=== PATIENT | female | born 1935 | race African-American/Black ===

== ENCOUNTER 2018-01-13 10:43 | Emergency (ER) | payer SELFPAY ==
[~2018-01-13] VITALS: Ht 162.6 cm; Wt 65.2 kg
[2018-01-13 10:50] VITALS: BP 164/62
== END 2018-01-13 12:50 | disposition home or self-care (01) ==
LOC: ER 10:43
DX: H11.31 Conjunctival hemorrhage, right eye (principal); I10 Essential (primary) hypertension
CPT/HCPCS: 99282

== ENCOUNTER 2022-11-22 17:31 | Emergency (ER) | payer OTHER ==
[~2022-11-22] VITALS: Ht 157.5 cm; Wt 48.0 kg
[2022-11-22 17:33] VITALS: O2SAT 97
[2022-11-22 18:44] LABS: HEMATOCRIT. 26.2 % (36.0-48.0); HEMOGLOBIN. 7.9 g/dL (12.0-16.0); MEAN CORPUSCULAR HEMOGLOBIN 20.3 pg (28.0-32.0); MEAN CORPUSCULAR VOLUME 67.1 fL (81.0-99.0); MEAN PLATELET VOLUME 9.6 fl (7.4-10.4); PLATELET 373 x1000/uL (130-400); RED BLOOD CELL COUNT 3.91 mill/uL (4.2-5.4); RED CELL DISTRIBUTION WIDTH 21.7 % (11.6-14.6)
[2022-11-22 18:54] LABS: CHLORIDE 105 mEq/L (98-107)
[2022-11-22 18:55] LABS: INR 1.1; PROTHROMBIN TIME 11.6 sec (9.6-11.0)
[2022-11-22] MEDS ORDERED: IOHEXOL-350 100 ML BOTTLE ONE (18:58)
[2022-11-22 19:01] LABS: CLARITY URINE CLEAR (CLEAR); COLOR URINE YELLOW (YELLOW); KETONES URINE NEGATIVE (NEGATIVE); LEUKOCYTE ESTERASE URINE NEGATIVE (NEGATIVE); NITRITE URINE NEGATIVE (NEGATIVE); OCCULT BLOOD URINE NEGATIVE (NEGATIVE); PROTEIN URINE TRACE (NEGATIVE); SPECIFIC GRAVITY URINE 1.065 (1.005-1.030); UROBILINOGEN URINE 0.2 E.U./dL (0.2-1.0)
[2022-11-22 19:05] LABS: ETHANOL BLOOD < 10 mg/dL (-10)
[2022-11-22 19:20] LABS: PLATELET ESTIMATE NORMAL
[2022-11-22 19:23] LABS: *AMPHETAMINES SCREEN URINE NEGATIVE (NEGATIVE); *BARBITURATES SCREEN URINE NEGATIVE (NEGATIVE); *BENZODIAZEPINES SCREEN URINE NEGATIVE (NEGATIVE); *COCAINE SCREEN URINE NEGATIVE (NEGATIVE); CANNABINOID URINE SCREEN NEGATIVE (NEGATIVE); METHADONE URINE SCREEN NEGATIVE (NEGATIVE); OPIATES URINE SCREEN NEGATIVE (NEGATIVE); PHENCYCLIDINE URINE SCREEN NEGATIVE (NEGATIVE)
[2022-11-23] MEDS ORDERED: ASPIRIN 81MG TABLET PO ONE (00:15)
[2022-11-23 02:00] VITALS: BP 123/65; PULSE 94; RESP 16; TEMP 97.6
== END 2022-11-23 02:35 | disposition short-term general hospital (02) ==
LOC: ER 19:12 → CANBEDREQ 11-23 23:29
DX: G45.9 Transient cerebral ischemic attack, unspecified (principal); F03.90 Unspecified dementia, unspecified severity, without behavioral disturbance, psychotic disturbance, mood disturbance, and anxiety; I10 Essential (primary) hypertension; Z85.9 Personal history of malignant neoplasm, unspecified; Z20.822 Contact with and (suspected) exposure to COVID-19
CPT/HCPCS: 80053; 80305; 81003; 80320; 82962; 85025; 85610; 36415; 71045; 70496; 70498; 70450; 93005; 99291; 87426; Q9967; C9803; G0480